=== PATIENT | male | born 1985 | race Caucasian/White ===

== ENCOUNTER 2017-11-02 19:30 | Emergency (ER) | payer SELFPAY ==
[2017-11-02 20:19] LABS: URINE APPEARANCE HAZY; URINE COLOR YELLOW
[2017-11-02 20:20] LABS: URINE BILIRUBIN NEGATIVE (NEGATIVE); URINE BLOOD TRACE (NEGATIVE); URINE GLUCOSE NEGATIVE (NEGATIVE); URINE KETONE NEGATIVE (NEGATIVE); URINE LEUKOCYTE ESTERASE TRACE (NEGATIVE); URINE NITRATE NEGATIVE (NEGATIVE); URINE PROTEIN(semi-quant) TRACE mg/dL (NEGATIVE); URINE UROBILINOGEN NORMAL (NORMAL)
[2017-11-02 20:21] LABS: URINE MUCUS PRESENT (NOT PRESENT)
[2017-11-02] MEDS ORDERED: CYCLOBENZAPRINE10 M1 PO (20:34)
[2017-11-02 20:40] VITALS: BP 136/86
== END 2017-11-02 20:40 | disposition home or self-care (01) ==
LOC: ED 19:30
PROVIDERS: Physician Assistant
DX: M62.830 Muscle spasm of back (principal)
CPT/HCPCS: J1885; J2360

== ENCOUNTER 2021-11-28 18:12 | Emergency (ER) | payer OTHER ==
[~2021-11-28 18:12] MED LIST: CYCLOBENZAPRINE10 M1 PO
[2021-11-28 19:51] VITALS: BP 155/78
== END 2021-11-28 19:52 | disposition home or self-care (01) ==
LOC: ED 18:12
DX: S61.412A Laceration without foreign body of left hand, initial encounter (principal); Z28.310 Unvaccinated for COVID-19; W26.0XXA Contact with knife, initial encounter

== ENCOUNTER → 2021-12-08 | Outpatient (CLI) | payer OTHER | LOC: AMSURD 16:51 | DX: Z98.890 Other specified postprocedural states (principal) ==